=== PATIENT | male | born 2000 | race Caucasian/White ===

== ENCOUNTER 2022-02-24 15:48 | Emergency (ER) | payer OTHER ==
[~2022-02-24] VITALS: Ht 175.3 cm; Wt 90.7 kg
[2022-02-24 16:43] VITALS: BP 127/76
--- NOTE | 2022-02-24 17:15 | NUR ---
TO ER BED 2,NO APPARENT CHANGE IN CONDITION
[2022-02-24] MEDS ORDERED: IBUP-1957 PO (17:41)
[2022-02-24] MEDS ORDERED: CYCL5TAB PO (17:41)
[2022-02-24] MEDS ORDERED: CYCLOBENZAPRINE 10 MG TABLET ONE (17:42)
[2022-02-24] MEDS ORDERED: KETOROLAC TROMETHAMINE INJ 30 MG/ML VIAL ONE (17:42)
[2022-02-24] MEDS ORDERED: CYCLOBENZAPRINE 10 MG TABLET PO ONE (18:00)
[2022-02-24] MEDS ORDERED: KETOROLAC TROMETHAMINE INJ 30 MG/ML VIAL IM ONE (18:00)
== END 2022-02-24 17:47 | disposition home or self-care (01) ==
LOC: ER 15:51
DX: M54.50 Low back pain, unspecified (principal); V43.52XA Car driver injured in collision with other type car in traffic accident, initial encounter; Y93.I9 Activity, other involving external motion; Y92.39 Other specified sports and athletic area as the place of occurrence of the external cause; Y99.0 Civilian activity done for income or pay
CPT/HCPCS: 99283; 96372; J1885